=== PATIENT | female | born 1975 | race Caucasian/White ===

== ENCOUNTER 2016-09-17 18:20 | Emergency (ER) | payer MEDICAID ==
[2016-09-17 20:33] LABS: BASOPHIL % 0.4 % (0-2); PLATELET COUNT 311 x10^3mcL (130-400)
[2016-09-17 20:37] LABS: RED CELL DISTRIBUTION WIDTH 18.4 % (11.5-14.5)
[2016-09-17 20:46] LABS: BILIRUBIN TOTAL 0.4 mg/dL (0.20-1.00); CALCIUM 8.2 mg/dL (8.5-10.1); CARBON DIOXIDE 26.1 mmol/L (21-32); POTASSIUM SERUM 4.2 mmol/L (3.5-5.1); TOTAL PROTEIN, SERUM 7.8 g/dL (6.4-8.2)
[2016-09-17 20:48] LABS: ALBUMIN 2.7 g/dL (3.4-5.0)
[2016-09-17 20:49] LABS: CREATININE SERUM 8.5 mg/dL (0.6-1.0)
[2016-09-17 21:49] VITALS: BP 150/85
== END 2016-09-17 21:49 | disposition home or self-care (01) ==
LOC: ED 18:20
PROVIDERS: Emergency Medicine
DX: I12.0 Hypertensive chronic kidney disease with stage 5 chronic kidney disease or end stage renal disease (principal); N18.6 End stage renal disease; E78.5 Hyperlipidemia, unspecified; Z79.899 Other long term (current) drug therapy
CPT/HCPCS: Q0092

== ENCOUNTER 2017-02-27 22:24 | Emergency (ER) | payer OTHER ==
[2017-02-27 23:24] LABS: BASOPHIL % 0.6 % (0-2); PLATELET COUNT 233 x10^3mcL (130-400)
[2017-02-27 23:28] LABS: RED CELL DISTRIBUTION WIDTH 19.9 % (11.5-14.5)
[2017-02-27 23:39] LABS: ALBUMIN 3.7 g/dL (3.4-5.0); BILIRUBIN TOTAL 0.4 mg/dL (0.20-1.00); CALCIUM 9.3 mg/dL (8.5-10.1); CARBON DIOXIDE 22.8 mmol/L (21-32)
[2017-02-27 23:41] LABS: TOTAL PROTEIN, SERUM 9.6 g/dL (6.4-8.2)
[2017-02-27 23:43] LABS: CREATININE SERUM 6.2 mg/dL (0.6-1.0)
[2017-02-28 04:35] VITALS: BP 117/61
== END 2017-02-28 04:29 | disposition home or self-care (01) ==
LOC: ED 22:24
PROVIDERS: Emergency Medicine
DX: E86.1 Hypovolemia (principal); I12.0 Hypertensive chronic kidney disease with stage 5 chronic kidney disease or end stage renal disease; N18.6 End stage renal disease; E87.2 Acidosis; Z79.899 Other long term (current) drug therapy
CPT/HCPCS: 83880; J7040; J7050; Q0092

== ENCOUNTER 2018-08-31 11:50 | Emergency (ER) | payer OTHER ==
[~2018-08-31] VITALS: Ht 157.5 cm; Wt 111.6 kg
[2018-08-31 11:54] VITALS: BP 126/62; Ht 157.5 cm; Wt 111.6 kg
== END 2018-08-31 13:04 | disposition home or self-care (01) ==
LOC: ED 11:50
DX: J10.1 Influenza due to other identified influenza virus with other respiratory manifestations (principal); I12.0 Hypertensive chronic kidney disease with stage 5 chronic kidney disease or end stage renal disease; N18.6 End stage renal disease; Z99.2 Dependence on renal dialysis
CPT/HCPCS: 87804; Q0092